=== PATIENT | male | born 1950 | race Caucasian/White ===

== ENCOUNTER 2016-07-19 14:16 | Emergency (ER) | payer OTHER ==
[2016-07-19] MEDS ORDERED: RX INFO: IV CONTRAST WAS GIVEN 1 EACH MISC MISCELLANE PRN (14:44)
[2016-07-19] MEDS ORDERED: IOHEXOL 350 MG/ML 25 ML BOTTLE (ORAL USE) PO PRN (14:44)
[2016-07-19] MEDS ORDERED: ONDANSETRON 4 MG/2 ML VIAL IVP STA (14:45)
[2016-07-19] MEDS ORDERED: SODIUM CHLORIDE 0.9% 500 ML IV STA (14:45)
[2016-07-19] MEDS ORDERED: SODIUM CHLORIDE 0.9% 1,000 ML IV STA (14:45)
[2016-07-19 15:27] LABS: Basophils # (A) 0.1 k/uL (0-0.2); Basophils % (A) 1 %; CHCM 33.2; Eosinophils # (A) 0.2 k/uL (0-0.7); Eosinophils % (A) 2 %; HCT 42.3 % (39.0-53.0); HDW 2.41; Luc # (Auto) 0.18; Luc % (Auto) 2; Lymphocytes # (A) 1.3 k/uL (1.0-4.8); Lymphocytes % (A) 15 %; MCH 30.9 pg (25.0-35.0); MCV 93.6 fL (80.0-100.0); Mean Platelet Volume 6.4; Monocytes # (A) 0.6 k/uL (0-1.0); Monocytes % (A) 7 %; Neutrophils # (A) 6.1 k/uL (1.3-7.7); Neutrophils % (A) 73 %; RBC 4.52 m/uL (4.30-5.90); RDW 13.4 % (11.5-15.5); WBC 8.3 k/uL (3.8-10.6); WBC (Perox) 8.13
[2016-07-19 15:36] LABS: ALT 20 U/L (21-72); AST 19 U/L (17-59); Alkaline Phosphatase 81 U/L (38-126); Anion Gap 11 mmol/L; Blood Urea Nitrogen 12 mg/dL (9-20); Calcium 9.6 mg/dL (8.4-10.2); Carbon Dioxide 26 mmol/L (22-30); Chloride 103 mmol/L (98-107); Glucose 94 mg/dL (74-99); Non-African American GFR(MDRD) >60 (>60 ml/min/1.73 sqM); Potassium 4.2 mmol/L (3.5-5.1); Sodium 140 mmol/L (137-145); Total Bilirubin 0.8 mg/dL (0.2-1.3); Total Protein 7.8 g/dL (6.3-8.2)
--- NOTE | 2016-07-19 15:47 | ED ---
General Adult HPI - General Chief complaint: Abdominal Pain Stated complaint: Sent by PCP Poss Bowel obs Time Seen by Provider: 07/19/16 14:42 Source: patient, family, RN notes reviewed Mode of arrival: ambulatory - History of Present Illness Initial comments: 65-year-old male presenting for abdominal pain. Patient also states he has had no bowel movement for the past 2 weeks. He states he hasn't been able to pass flatus for the past 2 days. Does state prior appendedectomy, but no other abdominal surgical history. He denies any history of bowel obstruction. He denies any nausea or vomiting associated. He did see his PCP earlier and recommended he come to the ED. He denies any fevers or chills. He denies any chest pain or shortness breath. - Related Data Home Medications Medication Instructions Recorded Confirmed Albuterol Sulfate [Proair Hfa] 1 - 2 puff INHALATION RT-Q4H PRN 07/19/16 Amitriptyline HCl [Elavil] 50 mg PO HS 07/19/16 07/19/16 Ca/D3/Mag#11/Zinc/Chrome Tanning Drum Operator/Sudeep/Bor 1 tab PO DAILY 07/19/16 07/19/16 [Caltrate 600+D Plus Tablet] Cholecalciferol [Vitamin D3] 2,000 unit PO DAILY 07/19/16 07/19/16 DULoxetine HCL [Cymbalta] 60 mg PO DAILY 07/19/16 07/19/16 Docusate [Colace] 100 mg PO DAILY 07/19/16 07/19/16 Finasteride [Proscar] 5 mg PO DAILY 07/19/16 07/19/16 Tiotropium 18 Mcg/Puff [Spiriva] 1 cap INHALATION RT-DAILY 07/19/16 07/19/16 Previous Rx's Medication Instructions Recorded Cephalexin [Keflex] 500 mg PO Q8HR #30 cap 07/19/16 HYDROcodone/APAP 5-325MG [[place]ap[place] 1 tab PO Q6HR PRN #12 tab 07/19/16 5-325] Ibuprofen [Motrin] 600 mg PO Q6HR PRN #24 tab 07/19/16 Magnesium Hydroxide [Milk of 400 mg PO DAILY #1 bottle 07/19/16 Magnesia] Ondansetron Odt [Zofran Odt] 4 mg PO Q8HR PRN #12 tab 07/19/16 metroNIDAZOLE [Flagyl] 500 mg PO TID #30 tab 07/19/16 Allergies Allergy/AdvReac Type Severity Reaction Status Date / Time iodine Allergy Rash/Hives Verified 07/19/16 15:07 Review of Systems ROS Statement: Those systems with pertinent positive or pertinent negative responses have been documented in the HPI. ROS Other: All systems not noted in ROS Statement are negative. Past Medical History Past Medical History: COPD, Osteoarthritis (OA) Additional Past Medical History / Comment(s): DYSRYTHMIA, DIVERTICULITIS, SKULL FX 1980 History of Any Multi-Drug Resistant Organisms: None Reported Additional Past Surgical History / Comment(s): SHOULDER, KNEE SX Past Psychological History: No Psychological Hx Reported Smoking Status: Current every day smoker Past Alcohol Use History: None Reported Past Drug Use History: None Reported General Exam - General Exam Comments Initial Comments: General: Awake and Alert. No acute distress. Does not appear acutely ill. Eyes: LUCY, EOM intact. No nystagmus. No scleral icterus. HENT: Atraumatic, normocephalic. Mucous membranes moist. Trachea midline. Neck: The neck is supple, there is no tenderness or JVD. Cardiovascular: Regular rate and rhythm. No murmur, rub, or gallop is appreciated. Distal pulses intact. Respiratory: Lungs are clear to auscultation bilaterally. No wheezes, rales, rhonchi. No respiratory distress. Gastrointestinal: Soft, mild diffuse tenderness. No rebound or guarding. Mild distention. No masses or organomegaly noted. No CVA tenderness. Musculoskeletal: No tenderness. Normal ROM. No gross deformity. No strength deficits. Neurological: A&Ox3. CN II-XII grossly intact, There are no obvious motor or sensory deficits. Coordination appears grossly intact. Speech is normal. Skin: Skin is warm and dry and no rashes or lesions are noted. Psychiatric: Cooperative, appropriate mood & affect, normal judgment. Course Vital Signs 07/19/16 07/19/16 07/19/16 14:35 16:50 18:15 Temperature 97.5 F L 97.8 F Pulse Rate 74 68 69 Respiratory 18 18 18 Rate Blood Pressure 154/85 171/90 169/86 O2 Sat by Pulse 97 98 98 Oximetry 07/19/16 19:09 Temperature 97.5 F L Pulse Rate 68 Respiratory 16 Rate Blood Pressure 149/83 O2 Sat by Pulse 96 Oximetry Medical Decision Making - Medical Decision Making 65-year-old male presenting for abdominal pain. On initial exam patient with mild diffuse tenderness but no evidence of acute peritonitis. Lab work and imaging ordered. Given IV fluids and Zofran. Patient declined any medications. CT abdomen and pelvis with evidence of mild diverticulitis but no evidence of obstruction. Lab work stable CBC. Stable BMP. LFTs grossly unremarkable. Lipase negative. UA with evidence of infection. Patient reevaluated, updated on results and imaging. Discussed diverticulitis and plan for antibiotic treatment. Patient given initial dose of Rocephin and Flagyl in the ED. Plan for coverage and Keflex and Flagyl by mouth for 10 days. Patient also with noted UTI which will be covered by Keflex. Rx for pain and nausea medications as well. Also discussed treatment for constipation. Discussed close follow-up with PCP. Discussed follow-up with GI as well for repeat colonoscopy after infection is resolved. Discussed concerning signs symptoms for immediate return to the ED. Patient and are agreeable with plan a discharge home. - Lab Data Result diagrams: 07/19/16 15:00 07/19/16 15:00 Lab Results 07/19/16 07/19/16 07/19/16 Range/Units 15:00 15:00 15:00 WBC 8.3 (3.8-10.6) k/uL RBC 4.52 (4.30-5.90) m/uL Hgb 14.0 (13.0-17.5) gm/dL Hct 42.3 (39.0-53.0) % MCV 93.6 (80.0-100.0) fL MCH 30.9 (25.0-35.0) pg MCHC 33.0 (31.0-37.0) g/dL RDW 13.4 (11.5-15.5) % Plt Count 286 (150-450) k/uL Neutrophils % 73 % Lymphocytes % 15 % Monocytes % 7 % Eosinophils % 2 % Basophils % 1 % Neutrophils # 6.1 (1.3-7.7) k/uL Lymphocytes # 1.3 (1.0-4.8) k/uL Monocytes # 0.6 (0-1.0) k/uL Eosinophils # 0.2 (0-0.7) k/uL Basophils # 0.1 (0-0.2) k/uL Sodium 140 (137-145) mmol/L Potassium 4.2 (3.5-5.1) mmol/L Chloride 103 (98-107) mmol/L Carbon Dioxide 26 (22-30) mmol/L Anion Gap 11 mmol/L BUN 12 (9-20) mg/dL Creatinine 0.72 (0.66-1.25) mg/dL Est GFR (MDRD) Af Amer >60 (>60 ml/min/1.73 sqM) Est GFR (MDRD) Non-Af >60 (>60 ml/min/1.73 sqM) Glucose 94 (74-99) mg/dL Plasma Lactic Acid Pablo 0.8 (0.7-2.0) mmol/L Calcium 9.6 (8.4-10.2) mg/dL Total Bilirubin 0.8 (0.2-1.3) mg/dL AST 19 (17-59) U/L ALT 20 L (21-72) U/L Alkaline Phosphatase 81 (38-126) U/L Total Protein 7.8 (6.3-8.2) g/dL Albumin 4.4 (3.5-5.0) g/dL Lipase 68 (23-300) U/L Urine Color Urine Appearance (Clear) Urine pH (5.0-8.0) Ur Specific Malo (1.001-1.035) Urine Protein (Negative) Urine Glucose (UA) (Negative) Urine Ketones (Negative) Urine Blood (Negative) Urine Nitrite (Negative) Urine Bilirubin (Negative) Urine Urobilinogen (<2.0) mg/dL Ur Leukocyte Esterase (Negative) Urine WBC (0-5) /hpf Urine WBC Clumps (None) /hpf Ur Squamous Epith Cells (0-4) /hpf Urine Bacteria (None) /hpf Urine Mucus (None) /hpf 07/19/16 Range/Units 19:00 WBC (3.8-10.6) k/uL RBC (4.30-5.90) m/uL Hgb (13.0-17.5) gm/dL Hct (39.0-53.0) % MCV (80.0-100.0) fL MCH (25.0-35.0) pg MCHC (31.0-37.0) g/dL RDW (11.5-15.5) % Plt Count (150-450) k/uL Neutrophils % % Lymphocytes % % Monocytes % % Eosinophils % % Basophils % % Neutrophils # (1.3-7.7) k/uL Lymphocytes # (1.0-4.8) k/uL Monocytes # (0-1.0) k/uL Eosinophils # (0-0.7) k/uL Basophils # (0-0.2) k/uL Sodium (137-145) mmol/L Potassium (3.5-5.1) mmol/L Chloride (98-107) mmol/L Carbon Dioxide (22-30) mmol/L Anion Gap mmol/L BUN (9-20) mg/dL Creatinine (0.66-1.25) mg/dL Est GFR (MDRD) Af Amer (>60 ml/min/1.73 sqM) Est GFR (MDRD) Non-Af (>60 ml/min/1.73 sqM) Glucose (74-99) mg/dL Plasma Lactic Acid Pablo (0.7-2.0) mmol/L Calcium (8.4-10.2) mg/dL Total Bilirubin (0.2-1.3) mg/dL AST (17-59) U/L ALT (21-72) U/L Alkaline Phosphatase (38-126) U/L Total Protein (6.3-8.2) g/dL Albumin (3.5-5.0) g/dL Lipase (23-300) U/L Urine Color Yellow Urine Appearance Turbid (Clear) Urine pH 6.0 (5.0-8.0) Ur Specific Malo 1.015 (1.001-1.035) Urine Protein 1+ H (Negative) Urine Glucose (UA) Negative (Negative) Urine Ketones 1+ H (Negative) Urine Blood Small H (Negative) Urine Nitrite Negative (Negative) Urine Bilirubin Negative (Negative) Urine Urobilinogen 8.0 (<2.0) mg/dL Ur Leukocyte Esterase Large H (Negative) Urine WBC >182 H (0-5) /hpf Urine WBC Clumps Few H (None) /hpf Ur Squamous Epith Cells 3 (0-4) /hpf Urine Bacteria Rare H (None) /hpf Urine Mucus Rare H (None) /hpf - Radiology Data Radiology results: report reviewed, image reviewed Disposition Clinical Impression: Abdominal pain, Constipation, Diverticulitis of intestine without perforation or abscess, UTI (urinary tract infection) Disposition: HOME SELF-CARE Condition: Stable Instructions: Abdominal Pain (ED), Diverticulitis (ED), Constipation (ED) Prescriptions: Cephalexin [Keflex] 500 mg PO Q8HR #30 cap HYDROcodone/APAP 5-325MG [[place] 5-325] 1 tab PO Q6HR PRN #12 tab PRN Reason: Pain Ibuprofen [Motrin] 600 mg PO Q6HR PRN #24 tab PRN Reason: Pain Magnesium Hydroxide [Milk of Magnesia] 400 mg PO DAILY #1 bottle Ondansetron Odt [Zofran Odt] 4 mg PO Q8HR PRN #12 tab PRN Reason: Nausea metroNIDAZOLE [Flagyl] 500 mg PO TID #30 tab Referrals: Meli Laurent MD [Primary Care Provider] - 1-2 days
--- NOTE | 2016-07-19 16:19 | XR ---
EXAMINATION TYPE: XR KUB DATE OF EXAM: 07/19/2016 4:09 PM CLINICAL HISTORY: Constipation for several weeks. TECHNIQUE: 2 upright KUB images of the abdomen are obtained COMPARISON: None. FINDINGS: Scattered gas is seen in non-distended small bowel loops. Gas and fecal material is seen in non-distended colon. A few scattered air-fluid levels are seen, nonspecific finding. There is no v isceromegaly, pneumoperitoneum, or abnormal calcification appreciated. The lung bases are clear and the osseous structures are intact. Some vascular calcification in the pelvis and right groin is note d. IMPRESSION: Overall nonspecific strongly favor nonobstructive bowel gas pattern.
--- NOTE | 2016-07-19 17:52 | CT ---
EXAMINATION TYPE: CT abdomen pelvis wo con DATE OF EXAM: 07/19/2016 5:36 PM COMPARISON: NONE HISTORY: Patient complains of generalized abdominal pain and constipation x2 weeks. CT DLP: 603 mGycm Automated exposure control for dose reduction was used. TECHNIQUE: Helical acquisition of images was performed from the lung bases through the pelvis. FINDINGS: Evaluation of the solid viscera is limited secondary lack of intravenous contrast. LUNG BASES: Bibasilar atelectasis is noted, right greater than left.. LIVER/GB: No evidence of intrahepatic biliary ductal dilatation. The unenhanced liver is unremarkable in morphology. Gallbladder is also unremarkable. PANCREAS: There is pancreatic atrophy without ductal dilatation and a few parenchymal calcifications, sequela chronic pancreatitis. SPLEEN: No significant abnormality is seen. ADRENALS: No significant abnormality is seen. KIDNEYS: A nonobstructing right midpole 3 mm renal calculus is noted. No evidence of hydronephrosis. FREE AIR: No free air is visualized RETROPERITONEAL ADENOPATHY: None visualized REPRODUCTIVE ORGANS: Prostate gland is heterogenous but nonenlarged. URINARY BLADDER: The bladder is grossly distended without trabeculation. PELVIC ADENOPATHY: None visualized. OSSEOUS STRUCTURES: There is mild retrolisthesis of L5 on S1 and degenerative changes of the lumbosa cral spine. Schmorl's node is seen of L4 with anterior height maintained. BOWEL: Free fluid and pericolonic fat stranding surround numerous sigmoid diverticula within a short segment. There is resultant sigmoid bowel wall thickening within the left lower quadrant. No evidenc e of free air or focal adjacent fluid collection is identified. The remainder of the colon is unaffec eva. There is thickening of the left paracolic fascia. OTHER: Atheromatous changes are seen of the abdominal aorta and its branches. Abdominal and are order ed and its branches are of normal course and caliber. IMPRESSION: UNCOMPLICATED ACUTE SIGMOID DIVERTICULITIS WITH NO EVIDENCE OF FOCAL FLUID COLLECTION OR FREE AIR.
[2016-07-19] MEDS ORDERED: metroNIDAZOLE-NS PMX 500 MG in SALINE 1 100ML.BAG IVPB STA (17:54)
[2016-07-19 19:11] VITALS: BP 149/83; PULSE 68; RESP 16; TEMP 97.5
[2016-07-19 19:20] LABS: Appearance,Urine Turbid (Clear); Bacteria,Urine Rare /hpf; Bilirubin,Urine Negative (Negative); Glucose,Urine (UA) Negative (Negative); Ketones,Urine 1+ (Negative); Leukocyte Esterase,Urine Large (Negative); Mucus,Urine Rare /hpf; Nitrite,Urine Negative (Negative); Particle Count 142369; Protein,Urine 1+ (Negative); Specific Gravity,Urine 1.015 (1.001-1.035); Squamous Epithelial Cell,Urine 3 /hpf (0-4); UA Billing (MACRO vs. MICRO) MICRO; WBC,Urine >182 /hpf (0-5)
== END 2016-07-19 20:17 | disposition home or self-care (01) ==
LOC: EC 14:16
DX: K57.92 Diverticulitis of intestine, part unspecified, without perforation or abscess without bleeding (principal); K59.00 Constipation, unspecified; N39.0 Urinary tract infection, site not specified; J44.9 Chronic obstructive pulmonary disease, unspecified; M19.90 Unspecified osteoarthritis, unspecified site; F17.200 Nicotine dependence, unspecified, uncomplicated; Z79.899 Other long term (current) drug therapy; Z88.8 Allergy status to other drugs, medicaments and biological substances
CPT/HCPCS: 36415; 80053; 83605; 83690; 85025; 81001; 74000; 74176; 99284; 96365; 96368; 96375; 96361 ×4; J2405; J0696

== ENCOUNTER → 2018-03-08 | Outpatient (CLI) | payer OTHER ==
--- NOTE | 2018-03-08 22:34 | MR ---
EXAMINATION TYPE: MR brain wo con DATE OF EXAM: 03/08/2018 COMPARISON: NONE HISTORY: Headache unusual duration per order. Headache for years with dizziness and right-sided heari ng loss per patient. TECHNIQUE: Multiplanar, multisequence imaging of the brain and brainstem is performed without IV cont rast. FINDINGS: Diffusion weighted images demonstrate no evidence of a recent infarct or other diffusion abnormality. There is no worrisome extra-axial fluid collection. There is ventricular and sulcal prominence consis tent with diffuse cerebral atrophy. There are focal and confluent areas of T2 hyperintensity seen thr oughout the superficial, deep, and most prominent in the periventricular white matter. Involvement at level of woo is noted. Midline structures demonstrate normal morphology. The craniocervical junction appears within normal limits. Normal vascular flow voids are present. Mild mucosal thickening inferior right maxillary sinu s is present. There is moderate mucosal thickening in the left maxillary sinus. There is mild mucosal thickening in the ethmoid sinuses bilaterally. The globes are intact. No suspicious opacification ma stoid air cells is seen. IMPRESSION: There is mild to moderate diffuse cerebral atrophy and moderate to advanced nonspecific w jermaine matter changes presume on basis of product of chronic small vessel ischemic change in patient of this age.
== END | disposition home or self-care (01) ==
LOC: RADMRIMAIN 13:09
PROVIDERS: ATTEND Psychiatry & Neurology Neurology
DX: G31.9 Degenerative disease of nervous system, unspecified (principal); R90.89 Other abnormal findings on diagnostic imaging of central nervous system
CPT/HCPCS: 70551

== ENCOUNTER → 2018-03-09 | Outpatient (CLI) | payer OTHER ==
--- NOTE | 2018-03-09 23:24 | MR ---
EXAMINATION TYPE: MR cervical spine wo con DATE OF EXAM: 03/09/2018 COMPARISON: None HISTORY: Cervicalgia, numbness, tingling weakness right arm TECHNIQUE: Multiplanar, multisequence images of the cervical spine were acquired. The cervical vertebra have normal alignment. There is mild narrowing of cervical disc spaces. There a re small posterior disc bulges from C3 to C7 without significant encroachment on the spinal canal. Ce rvical spinal cord shows no edema. Spinal canal measures 7.5 mm at C5-6 which is the narrowest. Poste rior disc herniation at C6-7 is in contact with the anterior aspect cervical cord. Brainstem appears intact. There is no compression fracture. Posterior elements are intact. There is no paraspinal mass. I see no bony destructive process. IMPRESSION: Mild multilevel spondylotic changes. No fracture. No significant narrowing of the spinal canal.
== END ==
LOC: RADMRIMAIN 13:25
PROVIDERS: ATTEND Psychiatry & Neurology Pain Medicine
DX: M47.812 Spondylosis without myelopathy or radiculopathy, cervical region (principal)
CPT/HCPCS: 72141

== ENCOUNTER → 2018-03-13 | Outpatient (CLI) | payer OTHER ==
--- NOTE | 2018-03-13 14:07 | MR ---
EXAMINATION TYPE: MR shoulder RT wo con DATE OF EXAM: 03/13/2018 COMPARISON: NONE HISTORY: Right shoulder pain per order. Numbness and tingling and weakness in right arm per patient. TECHNIQUE: Multiplanar, multisequence imaging of the right shoulder is performed without contrast. FINDINGS: Rotator Cuff: Distal supraspinatus and infraspinatus tendons are intact to humeral head attachment. S ubscapularis tendon is intact. Rotator cuff muscle bulk is preserved. Acromioclavicular Joint: There is suspected distal clavicular resection. Artifact from surgical zapien e is seen. Distal acromion morphology is downsloping with tiny spur paracoronal image 18, type III ap pearance. Glenohumeral Joint: Moderate narrowing is seen. Tiny effusion is present extending anteriorly. No sig nificant spurring is seen. Labrum: The labrum appears grossly intact given limitation of non-arthrogram study. Biceps Tendon: The long head of biceps is in normal location within bicipital groove. Bone marrow signal: There is heterogeneous oval 2.6 x 1.1 cm lesion proximal humeral metaphysis medul trell bone with serpiginous low T1 and T2 periphery of T1 slight hypointensity and T2 hyperintensity. Suspect bone infarct. Advise plain film correlation. Smaller area of heterogeneous T1 and T2 signal posterior superior humeral head is noted along the per iphery. Favor subchondral cystic change. Other: No additional significant abnormality is appreciated. IMPRESSION: No rotator cuff or labral tear is seen. Evidence of prior surgery distal clavicle. Suspec t bone infarct, advise plain film correlation.
== END | disposition home or self-care (01) ==
LOC: RADMRIMAIN 12:07
PROVIDERS: ATTEND Psychiatry & Neurology Neurology
DX: M25.511 Pain in right shoulder (principal); Z98.890 Other specified postprocedural states

== ENCOUNTER 2018-11-20 10:16 | Day surgery (SDC) | payer OTHER ==
[2018-11-16 12:41] VITALS: BMI 17.6
[2018-11-20 10:32] VITALS: TEMP 98.4
[2018-11-20] MEDS ORDERED: LIDOCAINE 1% 20 ML VIAL (10MG/ML) FOR IV START INTRADERMA PRN (10:32)
[2018-11-20] MEDS ORDERED: LACTATED RINGERS 1,000 ML IV SCH (10:32)
[2018-11-20] MEDS ORDERED: PROPOFOL 10 MG/ML 20 ML VIAL IV ONE (11:32)
--- NOTE | 2018-11-20 11:33 | P.GSHP ---
History of Present Illness H&P Date: 11/20/18 Chief Complaint: Screening colonoscopy This a 68 from a presents today for screening colonoscopy. Patient denies a significant GI complaints. Past Medical History Past Medical History: COPD, Liver Disease, Memory Impairment, Osteoarthritis (OA) Additional Past Medical History / Comment(s): Hx. of DIVERTICULITIS, SKULL FX 1979, frequent headaches, ?hepatitis in the past-nothing current, hx. colon polyps, alternating constipation/diarrhea History of Any Multi-Drug Resistant Organisms: None Reported Past Surgical History: Orthopedic Surgery Additional Past Surgical History / Comment(s): SHOULDER, KNEE SX, wrist surg., colonoscopy Past Anesthesia/Blood Transfusion Reactions: No Reported Reaction Smoking Status: Current every day smoker - Past Family History Mother Family Medical History: No Reported History Medications and Allergies Home Medications Medication Instructions Recorded Confirmed Type Antoni/D3/Mag11/Zinc/Card Cutter/Sudeep/Bor 1 tab PO DAILY 07/19/16 11/20/18 History [Caltrate 600+D Plus Tablet] Cholecalciferol [Vitamin D3] 2,000 unit PO DAILY 07/19/16 11/20/18 History DULoxetine HCL [Cymbalta] 60 mg PO DAILY 07/19/16 11/20/18 History Docusate [Colace] 100 mg PO DAILY PRN 07/19/16 11/20/18 History Finasteride [Proscar] 5 mg PO DAILY 07/19/16 11/20/18 History Magnesium Hydroxide [Milk of 400 mg PO DAILY PRN 11/16/18 11/20/18 History Magnesia] Multivitamins, Thera [Multivitamin 1 tab PO DAILY 11/16/18 11/20/18 History (formulary)] Sildenafil Citrate [Sildenafil] 20 mg PO DIRECTED PRN 11/16/18 11/20/18 History Allergies Allergy/AdvReac Type Severity Reaction Status Date / Time Iodinated Contrast- Oral and Allergy Rash/Hives Verified 11/16/18 12:36 IV Dye Surgical - Exam Vital Signs Temp Pulse Resp BP Pulse Ox 98.4 F 92 16 173/81 96 11/20/18 10:31 11/20/18 10:31 11/20/18 10:31 11/20/18 10:31 11/20/18 10:31 - General well developed, well nourished, no distress - Eyes PERRL - ENT normal pinna - Neck no masses - Respiratory normal expansion - Cardiovascular Rhythm: regular - Abdomen Abdomen: soft, non tender Assessment and Plan Assessment: We'll perform screening colonoscopy.
--- NOTE | 2018-11-20 11:48 | P.OP ---
Date of Procedure: 11/20/18 Preoperative Diagnosis: Screening colonoscopy Postoperative Diagnosis: Diverticulosis Left colon polyp Procedure(s) Performed: Colonoscopy Anesthesia: RITA Surgeon: Zeus Parker Pathology: other (Left colon polyp) Condition: stable Disposition: PACU Description of Procedure: The patient's placed on the endoscopy table lateral position. He received IV sedation. Digital rectal exam was performed which revealed no abnormalities. Flexible colonoscope was then placed patient anus and passed throughout the entire colon. The the colonoscope could not be placed into the ileocecal valve secondary to tortuosity valve. This point scope was withdrawn. The distal ascending colon and transverse colon appeared normal there were extensive diverticular changes the left colon. There is left colon polyp was removed with a cold forcep. Scope summer back and sigmoid colon there is extensive diverticular changes. There is no on some active diverticulitis. The scope was then brought back the rectum this appeared normal. Scope was brought patient.
[2018-11-20 12:49] VITALS: BP 145/75; PULSE 75; RESP 16
== END 2018-11-20 12:40 | disposition home or self-care (01) ==
LOC: ORWHC2ENDO 10:16
PROVIDERS: ATTEND Surgery
DX: Z12.11 Encounter for screening for malignant neoplasm of colon (principal); K57.30 Diverticulosis of large intestine without perforation or abscess without bleeding; K63.5 Polyp of colon; F17.200 Nicotine dependence, unspecified, uncomplicated; J44.9 Chronic obstructive pulmonary disease, unspecified; M19.90 Unspecified osteoarthritis, unspecified site; Z88.8 Allergy status to other drugs, medicaments and biological substances; Z79.899 Other long term (current) drug therapy; Z91.041 Radiographic dye allergy status; S02.91XS Unspecified fracture of skull, sequela; R51 Headache; R41.3 Other amnesia
CPT/HCPCS: 88305; 45380; J2704

== ENCOUNTER → 2018-12-19 | Outpatient (CLI) | payer OTHER ==
[2018-12-19 16:14] LABS: African American GFR (CKD) >90 (>60 ml/min/1.73 sqM); Blood Urea Nitrogen 9 mg/dL (9-20)
--- NOTE | 2018-12-19 21:38 | CT ---
EXAMINATION TYPE: CT pelvis w con DATE OF EXAM: 12/19/2018 COMPARISON: CT abdomen and pelvis July 19, 2016 HISTORY: Left groin pain CT DLP: 282.1 mGycm Automated exposure control for dose reduction was used. CONTRAST: Performed CT pelvis with oral and with IV Contrast, patient injected with 100 mL of Isovue 300. FINDINGS: Similar prior study there is abnormally distended bladder extending to level of umbilicus w ith mild concentric wall thickening. Prostate gland is perhaps mildly enlarged slightly more prominen t from prior. Oral contrast has not reached distal colonic loops. There are diverticula most prominent in the proxi mal sigmoid colon without CT evidence for acute diverticulitis. No suspicious small or large bowel di latation. Moderate 2 severe plaque of the abdominal aorta extends into iliac branch vessels. Mild to moderate joint space loss in both hips. [id number] multilevel spurring the visualized l ower lumbar spine. Mild to moderate disc space narrowing lumbosacral junction. Facet arthropathy lowe r lumbar spine. No concerning pelvic fluid collection. No suspicious pelvic adenopathy. No groin adenopathy or hernia present. IMPRESSION: No suspicious new finding seen to account for patient's symptoms of left groin pain. Pers istent abnormally distended bladder. Correlate clinically for underlying bladder dysfunction.
== END | disposition home or self-care (01) ==
LOC: RADCTMAIN 15:33
PROVIDERS: ATTEND Surgery
DX: N32.89 Other specified disorders of bladder (principal)
CPT/HCPCS: 82565; 84520; 72193; 36415; Q9967

== ENCOUNTER → 2019-02-19 | Outpatient (CLI) | payer OTHER, MEDICARE ==
[2019-02-19 14:55] LABS: Basophils % (A) 0 %; Eosinophils # (A) 0.1 k/uL (0-0.7); Eosinophils % (A) 2 %; HCT 32.5 % (39.0-53.0); HGB 10.1 gm/dL (13.0-17.5); Hypochromasia Slight; Lymphocytes # (A) 1.7 k/uL (1.0-4.8); Lymphocytes % (A) 22 %; MCH 27.9 pg (25.0-35.0); MCHC 30.9 g/dL (31.0-37.0); MCV 90.2 fL (80.0-100.0); Mean Platelet Volume 6.8; Monocytes # (A) 0.6 k/uL (0-1.0); Monocytes % (A) 7 %; Neutrophils # (A) 5.1 k/uL (1.3-7.7); Neutrophils % (A) 66 %; Platelet Count 587 k/uL (150-450); RDW 13.2 % (11.5-15.5); WBC 7.7 k/uL (3.8-10.6)
[2019-02-19 15:06] LABS: African American GFR (CKD) >90 (>60 ml/min/1.73 sqM); Anion Gap 8 mmol/L; Blood Urea Nitrogen 6 mg/dL (9-20); Calcium 8.9 mg/dL (8.4-10.2); Carbon Dioxide 31 mmol/L (22-30); Chloride 100 mmol/L (98-107); Glucose 96 mg/dL (74-99); Non-African American GFR(CKD) >90 (>60 ml/min/1.73 sqM); Potassium 3.1 mmol/L (3.5-5.1); Sodium 139 mmol/L (137-145)
== END | disposition home or self-care (01) ==
LOC: LABPAT 13:34
PROVIDERS: ATTEND Urology
DX: Z01.812 Encounter for preprocedural laboratory examination (principal); R33.9 Retention of urine, unspecified
CPT/HCPCS: 36415; 80048; 85025

== ENCOUNTER 2019-02-26 13:13 | Day surgery (SDC) | payer MEDICARE, OTHER ==
[2019-02-22 13:01] VITALS: BMI 17.4
--- NOTE | 2019-02-22 15:42 | P.HPIHPCON ---
History of Present Illness H&P Date: 02/26/19 Chief Complaint: Urinary retention Mr Rubio is 68 yo male with hx of urinary retention and bladder diverticulum. He has failed multiple Trial of voids. Discussed with him given his urinary retention, I discussed the option of TURP vs CIC to manage his retention. He elected to proceed with TURP. discussed the risk but no limited to bleeding, infection, bladder perforation, urinary incontinence, retrograde ejaculation. Discussed potential that he might need excision of the diverticulum in the future. I Also discussed risk from anesthesia which include but not limited to heart attack, stroke, blood clots and even . Consent for Procedure: I have explained the operation/procedure to the patient, including the risks, benefits, side effects, alternative therapies (including not receiving the proposed treatment or service), the likelihood of the patient achieving his/her goals, and potential recuperation problems for the procedure/sedation/analgesia, as well as any blood products, if indicated. I also explained to the patient the risks, benefits and side effects of the alternatives, as well as the risks related to not receiving the proposed procedure, care, treatment, or services. - Constitutional Constitutional: Denies chills, Denies fever - Cardiovascular Cardiovascular: Denies chest pain, Denies dyspnea on exertion, Denies leg edema - Gastrointestinal Gastrointestinal: Denies abdominal pain - Genitourinary (Female) Genitourinary: Denies dysuria, Denies flank pain, Denies hematuria Past Medical History Past Medical History: COPD, Liver Disease, Memory Impairment, Osteoarthritis (OA), Prostate Disorder Additional Past Medical History / Comment(s): Hx. of DIVERTICULITIS, SKULL FX 1979 , CONSTANT HEADACHES, HX HEPATITIS., COLON POLYPS, ALTERNATING CONSTIPATION/DIARRHEA., DEGENERATIVE JOINT DISEASE- PAIN ALL JOINTS, BACK PAIN., FREQUENT URINATION, DIFFICULTY STARTING URINE STREAM. History of Any Multi-Drug Resistant Organisms: None Reported Past Surgical History: Joint Replacement, Orthopedic Surgery Additional Past Surgical History / Comment(s): SHOULDER, TOTAL KNEE SX, wrist surg., colonoscopy Past Anesthesia/Blood Transfusion Reactions: No Reported Reaction, Motion Sickness Past Psychological History: Depression Smoking Status: Current every day smoker Past Alcohol Use History: None Reported Additional Past Alcohol Use History / Comment(s): SMOKES 1/2 PPD, STARTED SMO MANDA TEENAGER., QUIT FOR 7 YEARS AND RESTARTED. HX OF HEAVY ALCOHOL USE- QUIT 2002 Past Drug Use History: None Reported, Marijuana Additional Drug Use History / Comment(s): CURRENT MARIJUANA USE- SMOKES - Past Family History Mother Family Medical History: No Reported History Father Family Medical History: Cancer Medications and Allergies Home Medications Medication Instructions Recorded Confirmed Type Cholecalciferol [Vitamin D3] 2,000 unit PO DAILY 07/19/16 02/22/19 History DULoxetine HCL [Cymbalta] 60 mg PO DAILY 07/19/16 02/22/19 History Finasteride [Proscar] 5 mg PO DAILY 07/19/16 02/22/19 History Calcium Carbonate/Vitamin D3 1 each PO DAILY 02/22/19 02/22/19 History [Calcium 600-Vit D3 800 Caplet] Fiber Capsule 1 tab PO DAILY 02/22/19 History Multivit-Min/Folic/Vit K/Lycop 1 each PO DAILY 02/22/19 02/22/19 History [Men's Multivitamin Tablet] Allergies Allergy/AdvReac Type Severity Reaction Status Date / Time Iodinated Contrast Media Allergy Rash/Hives Verified 02/22/19 12:22 [Iodinated Contrast- Oral and IV Dye] Surgical - Exam - General no distress, no pain - Respiratory normal expansion, normal respiratory effort - Abdomen Abdomen: soft, non tender - Psychiatric oriented to time, oriented to person, oriented to place Assessment and Plan Assessment: 68 yo male with hx of urinary retention and bladder divertuclum -OR for TURP and cystogram
[~2019-02-26 13:13] MED LIST: DEXAMETHASONE SOD PHOSPHATE 10 MG/ML 1 ML VIAL IV ONE; GENTAMICIN IN NACL ISO-OSM PMX 80 MG in SALINE 1 100ML.BAG IVPB ONE; HYDROmorphone 0.5 MG/0.5 ML SYRINGE IVP PRN; LACTATED RINGERS 1,000 ML IV SCH; LIDOCAINE 1% 20 ML VIAL (10MG/ML) FOR IV START INTRADERMA PRN; ONDANSETRON 4 MG/2 ML VIAL IVP ONE; fentaNYL (PF) 50 MCG/ML 2 ML AMP IV PRN
[2019-02-26] MEDS ORDERED: SUCCINYLCHOLINE CHLORIDE 100 MG/5 ML SYR IV ONE (14:44)
[2019-02-26] MEDS ORDERED: LIDOCAINE 1% INJ 10MG/ML (20 ML MDV) ONE (14:44)
[2019-02-26] MEDS ORDERED: fentaNYL (PF) 50 MCG/ML 2 ML AMP ONE (14:44)
[2019-02-26] MEDS ORDERED: GLYCOPYRROLATE 0.2 MG/ML 2 ML VIAL ONE (14:44)
[2019-02-26] MEDS ORDERED: NEOSTIGMINE 1 MG/ML 10 ML VIAL ONE (14:44)
[2019-02-26] MEDS ORDERED: ROCURONIUM BROMIDE 10 MG/ML 10 ML VIAL IV ONE (14:44)
[2019-02-26] MEDS ORDERED: MIDAZOLAM 2 MG/2 ML VIAL ONE (14:44)
[2019-02-26] MEDS ORDERED: PROPOFOL 10 MG/ML 20 ML VIAL IV ONE (14:44)
[2019-02-26] MEDS ORDERED: IOPAMIDOL-300 50ML BTL MISCELLANE ONE (15:24)
[2019-02-26] MEDS ORDERED: LACTATED RINGERS 1,000 ML IV ONE (15:32)
--- NOTE | 2019-02-26 15:45 | FL ---
Fluoroscopy HISTORY: Urinary retention 5 seconds fluoroscopy time supplied to the referring clinician. 1 intraoperative C-arm images docume nt the procedure. See dictated report from urology.
[2019-02-26 15:54] VITALS: TEMP 96.8
--- NOTE | 2019-02-26 15:57 | P.OP ---
Date of Procedure: 02/26/19 Preoperative Diagnosis: urinary retention Postoperative Diagnosis: UTI Procedure(s) Performed: cysto, cystogram Implants: none Anesthesia: RITA Surgeon: Misha Foster Pathology: other (prostate chips) Condition: stable Disposition: PACU Indications for Procedure: Mr Rubio is 68 yo male with hx of urinary retention and bladder diverticulum. He has failed multiple Trial of voids. Discussed with him given his urinary retention, I discussed the option of TURP vs CIC to manage his retention. He elected to proceed with TURP. discussed the risk but no limited to bleeding, infection, bladder perforation, urinary incontinence, retrograde ejaculation. Discussed potential that he might need excision of the diverticulum in the future. Discussed risk he might still have difficulty voiding after TURP. I Also discussed risk from anesthesia which include but not limited to heart attack, stroke, blood clots and even . Operative Findings: Purlenet drainage from the bladder, no obvious diverticulum appreciated, multiple Tics and trabeculation within the bladder Cystogram showed no fistula or diverticulum Description of Procedure: the patient was brought to the operating room general anesthesia was induced. He was prepped and draped in sterile fashion placed in dorsal lithotomy position. A 20-Turkish Shah was inserted per urethra, more than 1 L of urine was obtained. Of note the urine was purulent in appearance. Given the finding of purulent drainage from the bladder, decision was made not to proceed with TURP. At this point of 400 mL of contrast was injected per catheter. Cystogram demonstrated no fistulas, or large diverticulum. next, cystoscope fitted with 17 sheath was inserted per urethra, cystoscopy was performed which showed a trabeculated bladder multiple tics within the bladder. There was evidence of diffuse erythema within the bladder wall which is consistent with cystitis. The bladder was emptied the case 18-Turkish Shah was placed. The patient was awakened from anesthesia and taken to PACU in stable condition
[2019-02-26 16:33] VITALS: RESP 16
[2019-02-26 16:44] VITALS: BP 146/80; PULSE 65
== END 2019-02-26 17:00 | disposition home or self-care (01) ==
LOC: OR 13:13
PROVIDERS: ATTEND Urology
DX: N39.0 Urinary tract infection, site not specified (principal); N32.3 Diverticulum of bladder; N40.1 Benign prostatic hyperplasia with lower urinary tract symptoms; R33.8 Other retention of urine; N32.89 Other specified disorders of bladder; J44.9 Chronic obstructive pulmonary disease, unspecified; M19.90 Unspecified osteoarthritis, unspecified site; F32.9 Major depressive disorder, single episode, unspecified; F17.210 Nicotine dependence, cigarettes, uncomplicated; Z91.041 Radiographic dye allergy status; Z79.899 Other long term (current) drug therapy; F41.9 Anxiety disorder, unspecified; Z86.19 Personal history of other infectious and parasitic diseases
CPT/HCPCS: 84132; 87086; 87077; 87186; 74420; 52000; J1580; J2250; J1100; J2710; J0690; J2405; J2001; J3010; J0330; J2704; Q9967

== ENCOUNTER → 2019-03-15 | Outpatient (CLI) | payer OTHER ==
[2019-03-15 12:49] LABS: African American GFR (CKD) >90 (>60 ml/min/1.73 sqM); Anion Gap 8 mmol/L; Blood Urea Nitrogen 18 mg/dL (9-20); Calcium 9.2 mg/dL (8.4-10.2); Carbon Dioxide 28 mmol/L (22-30); Chloride 107 mmol/L (98-107); Glucose 101 mg/dL (74-99); Non-African American GFR(CKD) >90 (>60 ml/min/1.73 sqM); Potassium 4.8 mmol/L (3.5-5.1); Sodium 143 mmol/L (137-145)
[2019-03-15 12:56] LABS: Basophils # (A) 0.1 k/uL (0-0.2); Basophils % (A) 1 %; Eosinophils % (A) 0 %; HCT 36.1 % (39.0-53.0); HGB 11.5 gm/dL (13.0-17.5); Hypochromasia Moderate; Lymphocytes % (A) 29 %; MCH 28.7 pg (25.0-35.0); MCHC 31.7 g/dL (31.0-37.0); MCV 90.6 fL (80.0-100.0); Mean Platelet Volume 7.2; Monocytes # (A) 0.5 k/uL (0-1.0); Monocytes % (A) 7 %; Neutrophils # (A) 4.2 k/uL (1.3-7.7); Neutrophils % (A) 60 %; Platelet Count 401 k/uL (150-450); RBC 3.99 m/uL (4.30-5.90); RDW 14.6 % (11.5-15.5)
== END | disposition home or self-care (01) ==
LOC: LABPAT 11:44
PROVIDERS: ATTEND Urology
DX: Z01.812 Encounter for preprocedural laboratory examination (principal); R33.9 Retention of urine, unspecified
CPT/HCPCS: 80048; 85025

== ENCOUNTER → 2021-12-31 | Day surgery (SDC) | payer OTHER ==
[2021-12-29 14:15] VITALS: BMI 16.7
[~2021-12-31] MED LIST changes: -DEXAMETHASONE SOD PHOSPHATE 10 MG/ML 1 ML VIAL IV ONE; -GENTAMICIN IN NACL ISO-OSM PMX 80 MG in SALINE 1 100ML.BAG IVPB ONE; -HYDROmorphone 0.5 MG/0.5 ML SYRINGE IVP PRN; +LACTATED RINGERS 1,000 ML IV ONE; -LIDOCAINE 1% 20 ML VIAL (10MG/ML) FOR IV START INTRADERMA PRN; -ONDANSETRON 4 MG/2 ML VIAL IVP ONE; +PROPOFOL 10 MG/ML 20 ML VIAL IV ONE; -fentaNYL (PF) 50 MCG/ML 2 ML AMP IV PRN
[2021-12-31 09:09] VITALS: TEMP 97.2
--- NOTE | 2021-12-31 09:46 | P.GSHP ---
History of Present Illness H&P Date: 12/31/21 Chief Complaint: GI bleed Is a 71-year-old male with history of rectal bleeding. Patient resents today for colonoscopy Past Medical History Past Medical History: COPD, Hearing Disorder / Deafness, Liver Disease, Memory Impairment, Osteoarthritis (OA) Additional Past Medical History / Comment(s): Constipation. Hx Diverticulititis, hx skull fracture 1979, frequent headaches, hx Hepatitis(unknown type), hx colon polyps, hard of hearing. History of Any Multi-Drug Resistant Organisms: None Reported, ESBL Date of last positivie culture/infection: 02/26/19 MDRO Source:: ESBL URINE Past Surgical History: Orthopedic Surgery Additional Past Surgical History / Comment(s): Shoulder, knee and wrist surgery, colonoscopy, Lasik eye surgery. Past Anesthesia/Blood Transfusion Reactions: No Reported Reaction, Motion Sickness Past Psychological History: Depression Smoking Status: Current every day smoker Past Alcohol Use History: None Reported Additional Past Alcohol Use History / Comment(s): STARTED SMOKING AT 19, QUIT FOR 7 YEARS AND STARTED AGAIN, SMOKES 1/2PPD. QUIT DRINKING IN 2002. Past Drug Use History: Marijuana Additional Drug Use History / Comment(s): Marijuana use occasionally. Aware no use 24 hrs prior to procedure. - Past Family History Mother Family Medical History: No Reported History Father Family Medical History: Cancer Medications and Allergies Home Medications Medication Instructions Recorded Confirmed Type Cholecalciferol [Vitamin D3] 50 mcg PO DAILY 07/19/16 12/29/21 History DULoxetine HCL [Cymbalta] 60 mg PO QAM 07/19/16 12/29/21 History Multivit-Min/Folic/Vit K/Lycop 1 each PO DAILY 02/22/19 12/29/21 History [Men's Multivitamin Tablet] Allergies Allergy/AdvReac Type Severity Reaction Status Date / Time Iodinated Contrast Media Allergy Rash/Hives Verified 12/29/21 14:10 [Iodinated Contrast- Oral and IV Dye] Surgical - Exam Vital Signs Temp Pulse Resp BP Pulse Ox 97.2 F L 68 18 181/89 97 12/31/21 09:07 12/31/21 09:07 12/31/21 09:07 12/31/21 09:07 12/31/21 09:07 - General well developed, well nourished, no distress - Eyes PERRL - ENT normal pinna - Neck no masses - Respiratory normal expansion - Cardiovascular Rhythm: regular - Abdomen Abdomen: soft, non tender Assessment and Plan Assessment: GI bleed. We'll perform colonoscopy.
--- NOTE | 2021-12-31 10:17 | P.OP ---
Date of Procedure: 12/31/21 Preoperative Diagnosis: GI bleed Postoperative Diagnosis: Diverticulosis Patulous anus with inability to hold air during colonoscopy Procedure(s) Performed: Colonoscopy Anesthesia: MAC Surgeon: Zeus Parker Pathology: none sent Condition: stable Disposition: PACU Description of Procedure: The patient's placed on the endoscopy table in the lateral position. He received IV sedation. The digital rectal exam performed which revealed no ebonized. The colonoscope was then placed patient anus passed into the colon. The sigmoid colon was quite tortuous. The patient was unable to hold area. At this point the scope was withdrawn and a pediatric scope was inserted. The pediatric scope was able to be position up into the left colon. The patient was unable air during colonoscopy. At this point the scope was withdrawn. The visualized colon had a few diverticula. There is no incision any active GI bleed. The scope was withdrawn. The patient was scheduled for a barium enema
[2021-12-31 10:30] VITALS: RESP 16
[2021-12-31 10:48] VITALS: BP 151/91; PULSE 59
--- NOTE | 2021-12-31 13:38 | FL ---
EXAMINATION TYPE: FL barium enema w air contrast DATE OF EXAM: 12/31/2021 COMPARISON: KUB 07/19/2016. HISTORY: Incomplete colonoscopy. TECHNIQUE: A single contrast barium enema study is performed. A total of 34 seconds of fluoroscopic time was utilized during procedure and 24 images obtained. FINDINGS: Household Assistant view of the abdomen shows overall non-obstructive bowel gas pattern. No evidence of any mass or polyp, obstructing or constricting lesion throughout the colon. There is s ignificant diverticular disease of the sigmoid and descending colon. Contrast is demonstrated within the cecum. IMPRESSION: 1. No evidence of any mass or polyp, obstructing, constricting lesion in the colon. 2. Sigmoid and descending colon diverticulosis.
== END | disposition home or self-care (01) ==
LOC: ORWHC2ENDO 08:55
PROVIDERS: ATTEND Surgery
DX: K57.30 Diverticulosis of large intestine without perforation or abscess without bleeding (principal); J44.9 Chronic obstructive pulmonary disease, unspecified; M19.90 Unspecified osteoarthritis, unspecified site; F32.A Depression, unspecified; F17.210 Nicotine dependence, cigarettes, uncomplicated; F12.90 Cannabis use, unspecified, uncomplicated
CPT/HCPCS: 74280; 45378; J2704

== ENCOUNTER → 2022-02-08 | Outpatient (CLI) | payer OTHER, MEDICARE ==
[2022-02-08 18:11] LABS: Basophils # (A) 0.07 X 10*3/uL (0.00-0.10); Basophils % (A) 0.9 %; Eosinophils # (A) 0.41 X 10*3/uL (0.04-0.35); Eosinophils % (A) 5.3 %; HCT 48.1 % (39.6-50.0); HGB 15.2 g/dL (13.0-17.0); Immature Grans, Automated 0.3 %; Lymphocytes # (A) 2.31 X 10*3/uL (0.90-5.00); Lymphocytes % (A) 29.9 %; MCH 29.6 pg (27.0-32.0); MCHC 31.6 g/dL (32.0-37.0); MCV 93.8 fL (80.0-97.0); Mean Platelet Volume 10.1 fL (9.5-12.2); Monocytes # (A) 0.72 X 10*3/uL (0.20-1.00); Monocytes % (A) 9.3 %; NRBC Per 100 WBC 0 /100 WBCS (0.0-0.0); Neutrophils % (A) 54.3 %; Platelet Count 267 X 10*3/uL (140-440); RBC 5.13 X 10*6/uL (4.40-5.60); RDW 13.2 % (11.5-14.5); WBC 7.73 X 10*3/uL (4.50-10.00)
[2022-02-08 18:17] LABS: Carbon Dioxide 29.1 mmol/L (20.0-27.5); Potassium 3.6 mmol/L (3.5-5.5)
== END | disposition home or self-care (01) ==
LOC: LABPAT 13:21
PROVIDERS: ATTEND Surgery
DX: Z01.818 Encounter for other preprocedural examination (principal); K57.33 Diverticulitis of large intestine without perforation or abscess with bleeding; R94.31 Abnormal electrocardiogram [ECG] [EKG]
CPT/HCPCS: 36415; 80051; 85025; 93005

== ENCOUNTER → 2022-11-11 | Outpatient (CLI) | payer OTHER, MEDICARE ==
--- NOTE | 2022-11-11 14:14 | XR ---
EXAMINATION TYPE: XR chest 2V DATE OF EXAM: 11/11/2022 COMPARISON: NONE TECHNIQUE: PA and lateral views submitted. HISTORY: COPD FINDINGS: The lungs are clear and there is no pneumothorax, pleural effusion, or focal pneumonia. Heart size normal and no overt failure. Osseous structures demonstrate hypertrophic and degenerative changes of the spine. Blunting the costophrenic angles likely related to hyperexpansion. Diffuse osteopenia and chronic widening of the right AC joint. Suspect sclerotic lesion right humeral neck possibly related to bone infarct. Correlate for symptoms if necessary with dedicated right shoulder series. Diffuse em physematous changes. A basilar subsegmental changes on the right. IMPRESSION: 1. COPD with right basilar atelectasis or early infiltrate. Small effusion or pleural thickening note d. 2. Sclerotic right humeral head lesion partially included in the [id number] may represent a bone i nfarct or chondroid lesion.
== END | disposition home or self-care (01) ==
LOC: LABWHC1 13:30
PROVIDERS: ATTEND Surgery Plastic and Reconstructive Surgery
DX: I11.9 Hypertensive heart disease without heart failure (principal); J44.9 Chronic obstructive pulmonary disease, unspecified; J98.11 Atelectasis; J92.9 Pleural plaque without asbestos; M25.811 Other specified joint disorders, right shoulder; R10.32 Left lower quadrant pain; R00.1 Bradycardia, unspecified; R94.31 Abnormal electrocardiogram [ECG] [EKG]; R91.8 Other nonspecific abnormal finding of lung field
CPT/HCPCS: 36415; 71046; 93005

== ENCOUNTER → 2023-05-30 | Outpatient (CLI) | payer OTHER ==
[2023-05-30 18:55] LABS: HCT 41.7 % (39.6-50.0); HGB 13.4 g/dL (13.0-17.0); MCH 29.6 pg (27.0-32.0); MCHC 32.1 g/dL (32.0-37.0); MCV 92.3 FL (80.0-97.0); NRBC Per 100 WBC 0 X 10*3/uL (0.00-0.01); Platelet Count 248 X 10*3/uL (140-440); RBC 4.52 X 10*6/uL (4.40-5.60); RDW 12.8 % (11.5-14.5); WBC 8.41 X 10*3/uL (4.50-10.00)
== END | disposition home or self-care (01) ==
LOC: LABPAT 15:34
PROVIDERS: ATTEND Surgery Plastic and Reconstructive Surgery
DX: Z01.812 Encounter for preprocedural laboratory examination (principal)
CPT/HCPCS: 36415; 85027

== ENCOUNTER 2023-06-02 10:20 | Day surgery (SDC) | payer MEDICARE, OTHER ==
[2023-05-30 10:56] VITALS: BMI 17.4
--- NOTE | 2023-06-02 08:58 | P.GSHP ---
History of Present Illness H&P Date: 06/02/23 CHIEF COMPLAINT: Inguinal hernia, left HISTORY OF PRESENT ILLNESS: The patient is a 72-year-old male who presents with a history of swelling and pain along the left groin. He's noted increased swelling including pain of the area. Now he presents for repair of his inguinal hernia. PAST MEDICAL HISTORY: Please see list. PAST SURGICAL HISTORY: Please see list. MEDICATIONS: Please see list. ALLERGIES: Please see list. SOCIAL HISTORY: No illicit drug use FAMILY HISTORY: No reports of Crohn disease or ulcerative colitis. REVIEW OF ORGAN SYSTEMS: CONSTITUTIONAL: Denies any fever or chills. Denies recent weight loss or weight gain. HEENT: Denies any trouble with vision, hearing or nosebleeds. No difficulty swallowing. LYMPHATIC: The patient denies any lumps and bumps around the neck. ENDOCRINE: Denies any thyroid disorders. Denies any blood sugar glucose intoler ance. RESPIRATORY: Has chronic obstructive pulmonary disease. CARDIOVASCULAR: Has pre-existing heart disease including hypertensive heart disease. GASTROINTESTINAL: Denies heart burn, constipation or bright red blood per rectum. GENITOURINARY: Denies any blood in urine or increased urinary frequency. MUSCULOSKELETAL: Has back pain, stiffness, joint arthritis. NEUROLOGIC: Denies any numbness or tingling along the distal extremities. No seizure disorders or headaches. PSYCHIATRIC: Has depressive disorder HEMATOLOGIC: Denies any abnormal bleeding or bruising. BREASTS: Denies any breast lumps, pain or nipple discharge. SKIN: Denies any severe rash or previous skin cancer. PHYSICAL EXAM: VITAL SIGNS: Stable GENERAL: Well-developed pleasant male in no acute distress. HEENT: No scleral icterus. Extraocular movements grossly intact. Moist buccal mucosa. NECK: Supple without lymphadenopathy. CHEST: Unlabored respirations. Equal bilateral excursions. CARDIOVASCULAR: Regular rate and rhythm. Distal 2+ pulses. ABDOMEN: Soft, nondistended. No peritoneal signs. Palpable defect of the right groin. MUSCULOSKELETAL: No clubbing, cyanosis, or edema. PSYCH: Awake and alert. SKIN: Well-perfused. Dry. REPORTS: Cardiology report reviewed with cardiac clearance and increased risk for complications. ASSESSMENT: 1. Inguinal hernia, left 2. Underweight, BMI 17.4 3. Chronic obstructive pulmonary disease 4. Hypertensive heart disease PLAN: 1. Recommend proceeding with a robotic inguinal repair with mesh with possible bilateral approach. 2. Benefits and risks of surgical intervention was discussed including possibility of open technique. 3. DVT prophylaxis. 4. Antibiotic prophylaxis. 5. Non narcotic pain management including abdominal wall block described 6. Blood sugar glucose described. 7. Tobacco cessation and counseling described 8. Patient is elevated risk for complications due to pre-existing underweight status and chronic obstructive pulmonary disease 9. Recommend CBC, CMP and possible checks x-ray prior to procedure Past Medical History Past Medical History: COPD, Hearing Disorder / Deafness, Hypertension, Liver Disease, Memory Impairment, Osteoarthritis (OA) Additional Past Medical History / Comment(s): chronic constipation., Hx Diverticulititis, hx skull fracture 1979, frequent headaches and joint pain- states he is always in pain., hx Hepatitis (unknown type).,colon polyps., left inguinal hernia., does not empty bladder and self caths daily. History of Any Multi-Drug Resistant Organisms: None Reported, ESBL Date of last positivie culture/infection: 02/26/19 MDRO Source:: ESBL URINE Past Surgical History: Orthopedic Surgery, Prostate Surgery Additional Past Surgical History / Comment(s): Shoulder, knee and wrist surgery, colonoscopy, Lasik eye surgery. Past Anesthesia/Blood Transfusion Reactions: No Reported Reaction Smoking Status: Current every day smoker - Past Family History Mother Family Medical History: No Reported History Father Family Medical History: Cancer Medications and Allergies Home Medications Medication Instructions Recorded Confirmed Type Cholecalciferol [Vitamin D3] 50 mcg PO DAILY 07/19/16 05/30/23 History DULoxetine HCL [Cymbalta] 60 mg PO QAM 07/19/16 05/30/23 History Multivit-Min/Folic/Vit K/Lycop 1 each PO DAILY 02/22/19 05/30/23 History [Men's Multivitamin Tablet] Calcium Carbonate/Vitamin D3 1 each PO DAILY 05/30/23 05/30/23 History [Calcium 600 mg-D3 20 mcg (800 unit)] Donepezil [Aricept] 5 mg PO HS 05/30/23 05/30/23 History Psyllium Husk [Fiber Capsule] 0.4 gm PO DAILY 05/30/23 05/30/23 History Sennosides [Ex-Lax Chew] 15 mg PO DIRECTED 05/30/23 05/30/23 History Tiotropium 2.5 Mcg/Puff [Spiriva 1 puff INHALATION DAILY 05/30/23 05/30/23 History Respimat 2.5 Mcg] lisinopriL [Zestril] 20 mg PO DAILY 05/30/23 05/30/23 History Allergies Allergy/AdvReac Type Severity Reaction Status Date / Time Iodinated Contrast Media Allergy Rash/Hives Verified 05/30/23 10:32 [Iodinated Contrast- Oral and IV Dye]
[~2023-06-02 10:20] MED LIST changes: +HYDROmorphone 0.5 MG/0.5 ML SYRINGE IVP PRN; -LACTATED RINGERS 1,000 ML IV ONE; -LACTATED RINGERS 1,000 ML IV SCH; +ONDANSETRON 4 MG/2 ML VIAL IVP PRN; -PROPOFOL 10 MG/ML 20 ML VIAL IV ONE
[2023-06-02] MEDS: LACTATED RINGERS 1,000 ML IV SCH (10:44)
[2023-06-02] MEDS: ONDANSETRON 4 MG/2 ML VIAL IVP ONE (10:54)
[2023-06-02] MEDS: ACETAMINOPHEN TAB 500 MG TAB PO PRN (10:54)
[2023-06-02] MEDS: TAMSULOSIN 0.4 MG CAP.ER.24H PO STA (10:54)
[2023-06-02] MEDS: DEXAMETHASONE SOD PHOSPHATE 4 MG/ML 1 ML VIAL IV ONE (10:54)
[2023-06-02] MEDS: MELOXICAM 7.5 MG TAB PO PRN (10:54)
[2023-06-02] MEDS: HEPARIN SODIUM,PORCINE 5,000 UNIT/ML 1 ML VIAL SQ PRN (10:54)
[2023-06-02 11:12] VITALS: TEMP 97
[2023-06-02 11:23] LABS: Basophils # (A) 0.1 k/uL (0-0.2); Basophils % (A) 1 %; Eosinophils # (A) 0.4 k/uL (0-0.7); Eosinophils % (A) 4 %; HCT 47.4 % (39.0-53.0); HGB 15.2 gm/dL (13.0-17.5); Lymphocytes % (A) 23 %; MCH 30.2 pg (25.0-35.0); MCV 94.3 fL (80.0-100.0); Mean Platelet Volume 7.6; Monocytes # (A) 0.6 k/uL (0-1.0); Monocytes % (A) 7 %; Neutrophils # (A) 5.4 k/uL (1.3-7.7); Neutrophils % (A) 64 %; Platelet Count 278 k/uL (150-450); RBC 5.03 m/uL (4.30-5.90); RDW 12.8 % (11.5-15.5); WBC 8.6 k/uL (3.8-10.6)
[2023-06-02] MEDS: MIDAZOLAM 2 MG/2 ML VIAL IVP ONE (11:52)
--- NOTE | 2023-06-02 11:53 | XR ---
EXAMINATION TYPE: XR chest 1V portable DATE OF EXAM: 06/02/2023 COMPARISON: 11/11/2022 HISTORY: Shortness of breath TECHNIQUE: Single frontal view of the chest is obtained. FINDINGS: No pneumothorax. The cardiac silhouette size is within normal limits. The osseous struc tures are intact. Chondroid lesion versus bone infarct right humeral head stable. Diffuse COPD with a pical pleural thickening somewhat nodular on the right. Small right pleural effusion and basilar atel ectasis favored over pneumonia. Elevated left hemidiaphragm. Chronic widening of the right AC joint may be on the basis of prior surg aubrey or related to prior trauma. Diffuse osteopenia. IMPRESSION: 1. COPD with small right pleural effusion and basilar atelectasis favored over pneumonia.
--- NOTE | 2023-06-02 12:08 | P.ANPRN ---
Procedure Note - Anesthesia - Nerve Block Performed Bilateral Erector Spinae Single Time Out Performed: Yes Date of Procedure: 06/02/23 Procedure Start Time: 11:51 Procedure Stop Time: 12:00 Location of Patient: PreOp Indication: Acute Post-Operative Pain, Analgesia, Requested by Surgeon Sedation Type: Sedate with meaningful contact maintained Preparation: Sterile Prep Position: Prone Needle Types: Pajunk Needle Gauge: 21 Ultrasound used to visualize needle placement: Yes Ultrasound used to observe medication spread: Yes Injectate: 0.5% Ropivacaine (see comment for volume) ([id number]+decadron 4mg----Each side) Blood Aspirated: No Pain Paresthesia on Injection Noted: No Resistance on Injection: Normal Image Stored and Saved: Yes Events: Uneventful and Well Tolerated
[2023-06-02 12:14] LABS: ALT 12 U/L (4-49); AST 21 U/L (17-59); African American GFR (CKD) 88 (>60 ml/min/1.73 sqM); Alkaline Phosphatase 74 U/L (38-126); Anion Gap 6 mmol/L; Blood Urea Nitrogen 20 mg/dL (9-20); Calcium 8.9 mg/dL (8.4-10.2); Carbon Dioxide 28 mmol/L (22-30); Chloride 108 mmol/L (98-107); Glucose 103 mg/dL (74-99); Non-African American GFR(CKD) 76 (>60 ml/min/1.73 sqM); Sodium 142 mmol/L (137-145); Total Bilirubin 0.6 mg/dL (0.2-1.3); Total Protein 6.8 g/dL (6.3-8.2)
[2023-06-02] MEDS ORDERED: SUCCINYLCHOLINE CHLORIDE 200 MG/10 ML VIAL IV ONE (12:24)
[2023-06-02] MEDS ORDERED: fentaNYL (PF) 50 MCG/ML 2 ML AMP ONE (12:24)
[2023-06-02] MEDS ORDERED: DEXAMETHASONE SOD PHOSPHATE 4 MG/ML 1 ML VIAL ONE (12:24)
[2023-06-02] MEDS ORDERED: GLYCOPYRROLATE 0.2 MG/ML 2 ML VIAL ONE (12:24)
[2023-06-02] MEDS ORDERED: PROPOFOL 10 MG/ML 20 ML VIAL IV ONE (12:24)
[2023-06-02] MEDS ORDERED: NEOSTIGMINE 1 MG/ML 10 ML VIAL ONE (12:24)
[2023-06-02] MEDS ORDERED: PHENYLEPHRINE-0.9% NACL SYG 1,000 MCG/10 ML SYRINGE ONE (12:24)
[2023-06-02] MEDS ORDERED: ROPIVACAINE 5 MG/ML 30 ML VIAL ONE (12:24)
[2023-06-02] MEDS ORDERED: ROCURONIUM 10 MG/ML (5 ML VIAL) IV ONE (12:24)
[2023-06-02] MEDS: LIDOCAINE 1%-EPI 1:100,000 50 ML VIAL SQ ONE ×2 (12:25→12:59)
--- NOTE | 2023-06-02 14:45 | P.OP ---
Date of Procedure: 06/02/23 Description of Procedure: SURGEON: DINORAH SNOWDEN MD PREOPERATIVE DIAGNOSES: 1. Left inguinal pain 2. History of bilateral inguinal hernia repair 3. Chronic obstructive pulmonary disease 4. Underweight, BMI 16.7 5. Hypertensive heart disease 6. Dementia 7. Memory impairment 8. History of ESBL 9. Tobacco abuse disorder 10. Marijuana use POSTOPERATIVE DIAGNOSES: 1. Left inguinal pain due to pelvic peritoneal adhesions 2. History of bilateral inguinal hernia repair 3. Chronic obstructive pulmonary disease 4. Underweight, BMI 16.7 5. Hypertensive heart disease 6. Dementia 7. Memory impairment 8. History of ESBL 9. Tobacco abuse disorder 10. Marijuana use 11. Interloop intestinal adhesions OPERATION: 1. Robotic-assisted da Haven Xi laparoscopic with lysis of adhesions ESTIMATED BLOOD LOSS: 5 mL. SPECIMENS REMOVED: None. COMPLICATIONS: None. OPERATIVE FINDINGS: 1. No recurrent inguinal hernias 2. Moderate pelvic adhesions involving the left groin and sigmoid colon due to diverticulosis 3. Moderate interloop adhesions left lower quadrant also lysed using scissors and vessel sealer without enterotomy 4. Mesh repair bilaterally identified. 5. Low flow CO2 and pressures used throughout case due to pre-existing COPD INDICATIONS: The patient is a 72-year-old male who presents pain and tenderness along the left groin. He has pre-existing history of inguinal hernia repairs done open technique. Surgical intervention with diagnostic laparoscopy, lysis of adhesions and possible left inguinal hernia repair were described. Informed consent was obtained. Robotic assisted laparoscopic approach was described. Benefits and risks of the procedure including but not limited to bleeding, infection was described. Informed consent was obtained. DESCRIPTION OF PROCEDURE: Patient was brought to the operating room, placed in supine position. After general induction, the abdomen had been prepped and draped in standard sterile fashion. The robotic da Haven XI system was primed. After a timeout protocol was performed, the patient had been prepped and draped in standard sterile fashion. The robot was docked along the left lateral abdomen. Please note prior to docking of the robot; however, a 5 mm 0 degrees laparoscopic trocar entry was performed along the left upper quadrant. Next, three 8 mm robotic ports were placed along the left lateral abdominal wall abdomen. Trochars were placed at least 10 to 15 cm away from the target anatomy. Instruments including graspers and scissors with cautery were interchanged by the assistant professor of physics. I had sat at the console. Moderate pelvic adhesions along the left groin including small bowel to the abdominal wall was found. Blunt dissection including sharp dissection using scissors and Bovie cautery was used releasing adhesions from the left groin and left pelvis. Multiple interloop adhesions were also identified where the small bowel was adherent to the colon. Features of diverticulosis without active diverticulitis was found. Adhesions and interloop were taken down using combination of scissors as well as vessel sealer. No recurrent inguinal hernia along the right groin was identified. Hemostasis was checked. The sigmoid colon was highly redundant. No large or small bowel obstruction was identified. The robot was undocked. All pneumoperitoneum and instruments were evacuated from the abdominal cavity. The incisions were reapproximated using 4-0 Monocryl in an interrupted subcuticular fashion. Please note along the trocar sites, local anesthetic was placed as a field block prior to insertion of all instruments. Exofin was applied to the skin. At the end of the procedure needle, sponge, and instrument count had been verified correct by the surgical scheduler. The patient was transferred to postanesthesia care unit in stable condition. Plan - Discharge Summary Discharge Rx Participant: No New Discharge Prescriptions: New Simethicone [Gas-X] 125 mg PO AC-TID PRN #20 capsule PRN Reason: Pain Acetaminophen [Tylenol] 650 mg PO Q6H #30 tab Continue DULoxetine HCL [Cymbalta] 60 mg PO QAM Cholecalciferol [Vitamin D3 (25 Mcg = 1000 Iu)] 50 mcg PO DAILY Multivit-Min/Folic/Vit K/Lycop [Men's Multivitamin Tablet] 1 each PO DAILY lisinopriL [Zestril] 20 mg PO DAILY Donepezil [Aricept] 5 mg PO HS Sennosides [Ex-Lax Chew] 15 mg PO DIRECTED Psyllium Husk [Fiber Capsule] 0.4 gm PO DAILY Calcium Carbonate/Vitamin D3 [Calcium 600 mg-D3 20 mcg (800 unit)] 1 each PO DAILY Tiotropium 2.5 Mcg/Puff [Spiriva Respimat 2.5 Mcg] 1 puff INHALATION DAILY Discharge Medication List Cholecalciferol [Vitamin D3 (25 Mcg = 1000 Iu)] 50 mcg PO DAILY 07/19/16 [History] DULoxetine HCL [Cymbalta] 60 mg PO QAM 07/19/16 [History] Multivit-Min/Folic/Vit K/Lycop [Men's Multivitamin Tablet] 1 each PO DAILY 02/22/19 [History] Calcium Carbonate/Vitamin D3 [Calcium 600 mg-D3 20 mcg (800 unit)] 1 each PO DAILY 05/30/23 [History] Donepezil [Aricept] 5 mg PO HS 05/30/23 [History] Psyllium Husk [Fiber Capsule] 0.4 gm PO DAILY 05/30/23 [History] Sennosides [Ex-Lax Chew] 15 mg PO DIRECTED 05/30/23 [History] Tiotropium 2.5 Mcg/Puff [Spiriva Respimat 2.5 Mcg] 1 puff INHALATION DAILY 05/30/23 [History] lisinopriL [Zestril] 20 mg PO DAILY 05/30/23 [History] Acetaminophen [Tylenol] 650 mg PO Q6H #30 tab 06/02/23 [Rx] Simethicone [Gas-X] 125 mg PO AC-TID PRN #20 capsule 06/02/23 [Rx] Follow up Appointment(s)/Referral(s): Dinorah Snowden MD [STAFF PHYSICIAN] - 06/07/23 1:30 pm () Patient Instructions/Handouts: *Surgery [facility] - (Anesthesia) Discharge Instructions Outpatient Surgery, Lysis of Abdominal Adhesions (GEN) Activity/Diet/Wound Care/Special Instructions: TELEHEALTH - DR WILL CALL YOU BETWEEN 8 am to 8 pm No lifting over 10 pounds in 2 weeks until June 15July shower. No bath tub soaks for two weeks until June 15 Diet as tolerated. Use Tylenol, simethicone and ibuprofen or Aleve scheduled for the next 24-48 hours for best pain relief. Use ice along incisions for today to prevent swelling. Discharge Disposition: HOME SELF-CARE
[2023-06-02 15:29] VITALS: RESP 20
[2023-06-02 15:30] VITALS: BP 119/64; PULSE 85
== END 2023-06-02 15:52 | disposition home or self-care (01) ==
LOC: OR 10:20
PROVIDERS: ATTEND Surgery Plastic and Reconstructive Surgery
DX: K66.0 Peritoneal adhesions (postprocedural) (postinfection) (principal); G89.18 Other acute postprocedural pain; K57.30 Diverticulosis of large intestine without perforation or abscess without bleeding; J44.9 Chronic obstructive pulmonary disease, unspecified; I11.9 Hypertensive heart disease without heart failure; J90 Pleural effusion, not elsewhere classified; J98.11 Atelectasis; R63.6 Underweight; Z68.1 Body mass index [BMI] 19.9 or less, adult; F03.90 Unspecified dementia, unspecified severity, without behavioral disturbance, psychotic disturbance, mood disturbance, and anxiety; E78.5 Hyperlipidemia, unspecified; Z86.19 Personal history of other infectious and parasitic diseases; Z87.19 Personal history of other diseases of the digestive system; F12.90 Cannabis use, unspecified, uncomplicated; Z79.899 Other long term (current) drug therapy; Z91.041 Radiographic dye allergy status; F17.210 Nicotine dependence, cigarettes, uncomplicated
CPT/HCPCS: 49329; S2900; 64999; 71045; 80053; 85025

== ENCOUNTER → 2024-09-20 | Outpatient (CLI) | payer MEDICARE ==
--- NOTE | 2024-09-20 15:12 | CTL ---
EXAMINATION TYPE: CT Low Dose Lung DATE OF EXAM ORDERED: 09/20/2024 COMPARISON: None CLINICAL INDICATION: Male, 73 years old with history of Z12.2, F17.210 NICOTINE DEPENDENCE; [facility], F/u lung screening for nicotine dependence of .5 ppd x50 years, current smoker, hx of copd. Pt was kyphot ic and also unable to raise arms above head., Lung cancer screening, History of Smoking/tobacco use. TECHNIQUE: Low dose computed tomography scan was performed through the chest at 1 mm thick sections a nd reconstructed images in multiple planes at 1 mm and [address] DLP: [address] CTDI: 1.3 mGy Automated exposure control for dose reduction was used. CT DIAGNOSTIC QUALITY: Satisfactory Findings: There are marked emphysematous changes. There are single bilateral sub-6 mm juxtapleural fissural nodules. There is no pleural effusion. In the right lower lobe posteriorly, there is consolidative density with stranding towards the hilum consistent with round atelectasis. The great vessels and heart are normal in size. There is no mediastinal, hilar or axillary adenopathy. Limited scanning through the upper abdomen reveals no gross abnormality. There are no focal osseous lesions. There is exaggerated kyphosis of the thoracic spine. IMPRESSION: 1. Lung RADS category 2 benign. Continue routine screening at yearly intervals. 2. No acute cardiopulmonary disease. 3. Marked emphysematous changes. 4. Large round atelectasis in the right lung base posteriorly [facility], , 09/20/2024 3:10 PM
== END | disposition home or self-care (01) ==
LOC: RADCTMAIN 14:27
PROVIDERS: ATTEND Family Medicine
DX: Z12.2 Encounter for screening for malignant neoplasm of respiratory organs (principal); F17.210 Nicotine dependence, cigarettes, uncomplicated; J43.9 Emphysema, unspecified; J98.11 Atelectasis
CPT/HCPCS: 71271